=== PATIENT | male | born 1970 | race American Indian/Alaskan Native ===

== ENCOUNTER 2019-04-15 09:31 | Outpatient (CLI) | payer BC | END 2019-04-15 09:32 | disposition home or self-care (01) | LOC: ECHO 09:31 | PROVIDERS: ATTEND Internal Medicine Cardiovascular Disease | DX: R94.31 Abnormal electrocardiogram [ECG] [EKG] (principal); Z82.49 Family history of ischemic heart disease and other diseases of the circulatory system | CPT/HCPCS: 93306 ==

== ENCOUNTER 2019-05-31 08:23 | Outpatient (CLI) | payer BC ==
--- NOTE | 2019-06-01 02:26 | Treadmill Report ---
EXERCISE STRESS TEST AGE: 48. SEX: Male. REFERRING REQUIREMENTS ENGINEER: Dr. Ty Payne. TIME: At 3:02 p.m. DESCRIPTION OF PROCEDURE: The patient underwent exercise stress test as per the standard [place] protocol. The patient walked on the treadmill for 8 minutes and 1 second and the peak heart rate was 173 (100% of predicted maximal heart rate and peak systolic blood pressure was 174 mmHg). During exercise stress test, the patient did not have any chest pain. There was no evidence of ischemia on the EKG. The patient was stable in the recovery. CONCLUSION: 1. Good exercise tolerance. 2. No chest pain. 3. No evidence of ischemia on EKG. 4. Negative exercise stress test at 100% of predicted maximal heart rate. JOB# [id number] YOLANDA/HA
== END 2019-05-31 08:24 | disposition home or self-care (01) ==
LOC: CARD 08:23
PROVIDERS: ATTEND Internal Medicine Cardiovascular Disease
DX: Z71.2 Person consulting for explanation of examination or test findings (principal); R94.31 Abnormal electrocardiogram [ECG] [EKG]; Z82.49 Family history of ischemic heart disease and other diseases of the circulatory system
CPT/HCPCS: 93017

== ENCOUNTER 2019-06-22 16:03 | Outpatient (CLI) | payer BC ==
--- NOTE | 2019-06-22 16:45 | XRay Report ---
CERVICAL SPINE 5 VIEWS INDICATION / CLINICAL INFORMATION: S13.4XXA, SPRAIN OF LIGAMENTS OF CERVICAL SPINE, INTTIAL ENCOUNTE. COMPARISON: None available. FINDINGS: Mild spondylosis. No fracture or other acute abnormality. Signer Name: Hernan Leyva MD Signed: 06/22/2019 4:41 PM Workstation Name: [id number]
== END 2019-06-22 16:04 | disposition home or self-care (01) ==
LOC: XRAY 16:03
PROVIDERS: ATTEND Internal Medicine
DX: M47.812 Spondylosis without myelopathy or radiculopathy, cervical region (principal)
CPT/HCPCS: 72050

== ENCOUNTER 2019-09-30 09:14 | Day surgery (SDC) | payer BC ==
--- NOTE | 2019-09-30 10:29 | Anesthesia Consultation ---
Anesthesia Consult and Med Hx Date of service: 09/30/19 - Airway Anesthetic Teeth Evaluation: Good ROM Head & Neck: Adequate Mental/Hyoid Distance: Adequate Mallampati Class: Class II Intubation Access Assessment: Good - Pulmonary Exam CTA: Yes - Cardiac Exam Cardiac Exam: RRR - Pre-Operative Health Status ASA Pre-Surgery Classification: ASA2 Proposed Anesthetic Plan: General (Chronic Back Pain)
--- NOTE | 2019-09-30 10:29 | Anesthesia Day of Surgery ---
Anesthesia Day of Surgery - Day of Surgery Patient Examined: Yes Patient H&P Reviewed: Yes Patient is NPO: Yes
[2019-09-30] MEDS ORDERED: SODIUM CHLORIDE 0.9% 1000 ML 1,000 ML IV SCH (11:00)
[2019-09-30] MEDS ORDERED: LIDOCAINE MPF (2%) 20 MG/1 ML VIAL 5 ML ONE (11:30)
[2019-09-30] MEDS ORDERED: PROPOFOL 200 MG/20 ML VIAL IV ONE (12:16)
--- NOTE | 2019-09-30 12:38 | Short Stay Summary ---
Short Stay Documentation Date of service: 09/30/19 Narrative H&P: Patient is a 48 yo male who presents for screening colonoscopy. Denies prior colonoscopy or gi complaints at this time. - History Past Medical History: No medical history Past Surgical History: No surgical history Social history: no significant social history - Allergies and Medications Current Medications: Allergies Penicillins Allergy (Unverified 04/15/19 09:32) Unknown Home Medications Medication Instructions Recorded Confirmed Last Taken Type No Known Home Medications [No 09/30/19 09/30/19 Unknown History Reported Home Medications] Active Medications Sodium Chloride (Nacl 0.9% 1000 Ml) 1,000 mls @ 50 mls/hr IV DIRECT MALA Last Admin: 09/30/19 11:30 Dose: 50 mls/hr Documented by: - Physical exam General appearance: no acute distress Lungs: Clear to auscultation Heart: Regular rate Gastrointestinal: normal - Brief post op/procedure progress note Date of procedure: 09/30/19 Pre-op diagnosis: Screening for colorectal cancer Post-op diagnosis: other (Normal) Procedure: Colonoscopy Anesthesia: MAC Findings: Normal colonoscopy Surgeon: LEXI BRADSHAW Estimated blood loss: none Pathology: none - Disposition Condition at discharge: Good Disposition: DC-01 TO HOME OR SELFCARE Short Stay Discharge Plan Follow up with: JACQUELINE VARGAS MD [Primary Care Provider] - 7 Days
--- NOTE | 2019-09-30 12:39 | Operative Report ---
Operative Report Operative Report: Colonoscopy Procedure Note Date of procedure: 09/30/2019 Endoscopist: Kun Hill Pre-op diagnosis: Screening for colorectal cancer Post-op diagnosis: Normal colonoscopy Anesthesia: MAC Complications: No immediate complications Estimated blood loss: None Procedure: After consent was obtained, the patient was placed in the left lateral decubitus position. The olympus colonoscope was inserted into the patient's rectum under direct vision, and advanced to the cecum without difficulty. The patient tolerated the procedure well. The views of the mucosa were good. The quality of prep was good. The patient's vital signs were monitored continuously throughout the procedure. Findings: The entire examined colon appeared normal. Impression: 1. Normal colonoscopy Recommendations: -repeat colonoscopy in 10 years for screening purposes
[2019-09-30 13:03] VITALS: BP 117/74
--- NOTE | 2019-09-30 15:12 | Post Anesthesia Evaluation ---
- Post Anesthesia Evaluation Patient Participated: Yes Airway Patent: Yes Stable Respiratory Function: Yes Nausea/Vomiting: No Temp > 96.8F: Yes Pain Manageable: Yes Adequeate Hydration: Yes Anesthesia Complications: No Block Receding Appropriately: Not Applicable Patient on Ventilator: No
== END 2019-09-30 13:30 | disposition home or self-care (01) ==
LOC: GIO 09:14
PROVIDERS: ATTEND Internal Medicine Gastroenterology
DX: Z12.11 Encounter for screening for malignant neoplasm of colon (principal); Z88.0 Allergy status to penicillin; Z79.899 Other long term (current) drug therapy
CPT/HCPCS: 45378; J2704; J7030